=== PATIENT | male | born 1965 | race Caucasian/White ===

== ENCOUNTER 2016-03-23 01:32 | Emergency (ER) | payer MEDICAID ==
[~2016-03-23] VITALS: Ht 165.1 cm; Wt 75.0 kg
[2016-03-23 01:55] VITALS: Ht 165.1 cm; Wt 75.0 kg
--- NOTE | 2016-03-23 01:55 | ERA ---
ER Documentation Chief Complaint Date/Time DATE: 03/23/16 TIME: 01:55 Chief Complaint Suicidal ideation HPI The patient is a 50-year-old male, presenting to the ER because of acute suicidal ideation. He stopped [employer] officer because he wanted to go to the hospital. The officer brought him to the ER. He attempted to cut himself with a razor in the waiting room. He was recently hospitalized at psychiatric hospital about a week ago. She is supposed to take psychotropic medication however he does not have them for the last 4 days. He denies auditory, visual hallucination. He denies headache, neck pain, chest pain, abdominal pain, vomiting, diarrhea, constipation. He smokes, drinks, does not illicit drug Past medical history: Bipolar disorder, GERD, hiatal hernia, peptic ulcer disease, hepatitis C, hypertension Past surgical history: None ROS All systems reviewed and are negative except as per history of present illness. Allergies Allergies: Coded Allergies: No Known Drug Allergy (Verified Allergy, Unknown, 04/16/07) Physical Exam Vitals Vital Signs Date Time Temp Pulse Resp B/P Pulse Ox O2 Delivery O2 Flow Rate FiO2 03/23/16 01:55 97.7 98 26 158/97 98 03/23/16 01:55 97.7 85 26 158/97 98 Room Air Physical Exam Const: No acute distress. Head: Atraumatic. Eyes: Normal Conjunctiva. ENT: Normal External Ears, Nose and Mouth. Neck: Full range of motion. No meningismus. Resp: Clear to auscultation bilaterally. Cardio: Regular rate and rhythm, no murmurs. Abd: Soft, non distended, normal bowel sounds, non tender. Skin: No petechiae or rashes. Back: No midline or flank tenderness. Ext: No cyanosis, or edema. Neur: Awake and alert. No focal deficit Psych: Depressed and suicidal Result Diagram: 03/23/168 03/23/168 Results 24 hrs Laboratory Tests Test 03/23/16 02:08 Acetaminophen Level < 10.0ug/ml Alanine Aminotransferase (ALT/SGPT) 62IU/L Albumin 4.8g/dl Albumin/Globulin Ratio 1.23 Alkaline Phosphatase 81IU/L Anion Gap 20 Aspartate Amino Transf (AST/SGOT) 35IU/L Basophils # 0.010^3/ul Basophils % 0.4% Blood Urea Nitrogen 19mg/dl Calcium Level 10.2mg/dl Carbon Dioxide Level 28mmol/L Chloride Level 98mmol/L Creatinine 0.95mg/dl Direct Bilirubin 0.00mg/dl Eosinophils # 0.210^3/ul Eosinophils % 2.4% Ethyl Alcohol Level < 10.0mg/dl Globulin 3.90g/dl Glucose Level 109mg/dl Hematocrit 45.5% Hemoglobin 16.1g/dl Indirect Bilirubin 0.4mg/dl Lymphocytes # 2.610^3/ul Lymphocytes % 29.9% Mean Corpuscular Hemoglobin 34.3pg Mean Corpuscular Hemoglobin Concent 35.4g/dl Mean Corpuscular Volume 97.1fl Mean Platelet Volume 8.4fl Monocytes # 0.810^3/ul Monocytes % 9.4% Neutrophils # 5.010^3/ul Neutrophils % 57.9% Nucleated Red Blood Cells # 0.010^3/ul Nucleated Red Blood Cells % 0.0/100WBC Platelet Count 33365^3/UL Potassium Level 4.1mmol/L Red Blood Count 4.6810^6/ul Red Cell Distribution Width 12.8% Salicylates Level < 1.0mg/dl Sodium Level 142mmol/L Total Bilirubin 0.4mg/dl Total Protein 8.7g/dl White Blood Count 8.710^3/ul Procedures/MDM MEDICAL MAKING DECISION: The patient is a 50-year-old male, presenting with suicidal ideation. The differential diagnoses considered include but are not limited to psychosis, drug-induced psychosis, decompensated psychiatric illness , anxiety attack, panic attack Departure Diagnosis: Primary Impression: Suicidal ideation Additional Impression: Substance abuse Condition: Stable Comments He was evaluated by telepsychiatrist Dr Kinney who put the patient is a 5150 hold ELENI TELLO MD Mar 23, 2016 01:55 ELENI TELLO MD Mar 23, 2016 01:55
[2016-03-23 02:41] LABS: BASOPHILS % 0.4 % (0.0-2.0); EOSINOPHILS # 0.2 10^3/ul (0.0-0.5); EOSINOPHILS % 2.4 % (0.0-7.0); HEMATOCRIT 45.5 % (42.0-52.0); HEMOGLOBIN 16.1 g/dl (14.0-18.0); LYMPHOCYTES # 2.6 10^3/ul (0.8-2.9); LYMPHOCYTES % 29.9 % (15.0-51.0); MEAN CORPUSCULAR HEMOGLOBIN 34.3 pg (29.0-33.0); MEAN CORPUSCULAR HGB CONC 35.4 g/dl (32.0-37.0); MEAN CORPUSCULAR VOLUME 97.1 fl (82.0-101.0); MEAN PLATELET VOLUME 8.4 fl (7.4-10.4); MONOCYTE # 0.8 10^3/ul (0.3-0.9); MONOCYTES % 9.4 % (0.0-11.0); NEUTROPHILS % 57.9 % (39.0-77.0); PLATELET COUNT 270 10^3/UL (140-440); RED BLOOD COUNT 4.68 10^6/ul (4.70-6.10); RED CELL DISTRIBUTION WIDTH 12.8 % (11.5-14.5); UNCORRECTED WBC 8.7 10^3/ul (4.8-10.8); WHITE BLOOD COUNT 8.7 10^3/ul (4.8-10.8)
[2016-03-23 02:42] LABS: CONDITION 1
[2016-03-23 03:02] LABS: ALBUMIN 4.8 g/dl (3.3-4.9)
[2016-03-23 03:03] LABS: CHLORIDE 98 mmol/L (97-110); POTASSIUM 4.1 mmol/L (3.5-5.1); SODIUM 142 mmol/L (135-144)
[2016-03-23 03:05] LABS: ALBUMIN/GLOBULIN RATIO 1.23; ANION GAP 20 (8-16); ASPARTATE AMINO TRANSFERASE 35 IU/L (15-46); BILIRUBIN,INDIRECT 0.4 mg/dl (0-1.1); BILIRUBIN,TOTAL 0.4 mg/dl (0.2-1.3); CARBON DIOXIDE 28 mmol/L (21-31); CREATININE 0.95 mg/dl (0.61-1.24); TOTAL PROTEIN 8.7 g/dl (6.1-8.1)
[2016-03-23 03:06] LABS: ALANINE AMINOTRANSFERASE 62 IU/L (13-69); ALKALINE PHOSPHATASE 81 IU/L (42-121); BLOOD UREA NITROGEN 19 mg/dl (7-20); CALCIUM 10.2 mg/dl (8.4-10.2); GLUCOSE 109 mg/dl (70-220)
[2016-03-23 03:08] LABS: ACETAMINOPHEN < 10.0 ug/ml (10.0-30.0); ETHANOL < 10.0 mg/dl; SALICYLATE < 1.0 mg/dl (5.0-30.0)
[2016-03-23 05:27] LABS: ADD UMIC YES; URINE BILIRUBIN (Dip) NEGATIVE (NEGATIVE); URINE BLOOD (Dip) NEGATIVE (NEGATIVE); URINE COLOR LT. YELLOW (YELLOW); URINE GLUCOSE (Dip) NEGATIVE (NEGATIVE); URINE KETONES (Dip) NEGATIVE (NEGATIVE); URINE LEUKOCYTE ESTERASE (Dip) TRACE (NEGATIVE); URINE NITRITE (Dip) NEGATIVE (NEGATIVE); URINE TOTAL PROTEIN (Dip) NEGATIVE (NEGATIVE); URINE UROBILINOGEN (Dip) 0.2 E.U./dL (0.1-1.0)
[2016-03-23] MEDS ORDERED: LORAZEPAM 2 MG INJ IM ONE ×2 (05:30→06:00)
[2016-03-23] MEDS ORDERED: LORAZEPAM 2 MG INJ ONE (05:33)
[2016-03-23] MEDS ORDERED: DIPHENHYDRAMINE 50 MG INJ ONE (05:34)
[2016-03-23] MEDS ORDERED: HALOPERIDOL 5 MG INJ ONE (05:34)
--- NOTE | 2016-03-23 05:44 | PSY ---
Date/Time of Note Date/Time of Note DATE: 03/23/16 TIME: 05:22 Psychiatric Subjective Eval Consent Pt consented to telemedicine: Yes Subjective Evaluation Patient location: emergency Chief Complaint: insomnia x 4 days, [employer] accompanying, attempted self harm in lobby Reason for consult: SUICIDE ATTEMPT IN ER WAITING ROOM History of present illness patient is a 50 yo male with PPH Of bipolar , anxiety , alcohol and methamphetamine abuse who was brought in to the ER by [employer] due to SI, while in the ER patient attempted to cut himself.Patient states that he has been feeling depressed, hopeless and helpless for weeks due to being hopeless and drinking alcohol daily. He states that he wants to kill himself by cutting himself, he states that he hears voices telling him to hurt himself and other people, he denies any HI, he is very anxious and at times irritable and suffers from insomnia. He has been feeling paranoid and wants to be admitted for safety and treatment. Past psychiatric history past suicidal attempt and admission Hospitalization: Suicidal Attempt(s) Medical history Problems Medical Problems: (1) Substance abuse Status: Acute (2) Suicidal ideation Status: Acute Allergies: Coded Allergies: No Known Drug Allergy (Verified Allergy, Unknown, 04/16/07) Substance Abuse Substance abuse history: Yes Prior substance abuse treatmen: Yes Social History Marital status: single Level of education: hs DPA/Conservatorship: No Occupation/Correction: unemployed Psychiatric Objective Eval Review of Systems: Review of Systems: Not Applicable Physical Examination: Physical Examination: Applicable Sleep: Insomnia Appetite: Decreased Energy: Decreased Interest: Decreased Mental Status Examination: Appearance: Disheveled Eye Contact: Fair Psychomotor Activity: Normal Behavior: Cooperative Speech: Clear AFFECT: Anxious Mood: Depressed Though Process: Linear Thought Content: Delusions, Hallucinations Suicidal: Yes Homicidal: No On 72 hour hold: No Orientation: x2 Insight: Impared Judgement: Impared Attention Span: Distractible Laboratory Results Laboratory Tests Test 03/23/16 02:08 Acetaminophen Level < 10.0ug/ml Alanine Aminotransferase (ALT/SGPT) 62IU/L Albumin 4.8g/dl Albumin/Globulin Ratio 1.23 Alkaline Phosphatase 81IU/L Anion Gap 20 Aspartate Amino Transf (AST/SGOT) 35IU/L Basophils # 0.010^3/ul Basophils % 0.4% Blood Urea Nitrogen 19mg/dl Calcium Level 10.2mg/dl Carbon Dioxide Level 28mmol/L Chloride Level 98mmol/L Creatinine 0.95mg/dl Direct Bilirubin 0.00mg/dl Eosinophils # 0.210^3/ul Eosinophils % 2.4% Ethyl Alcohol Level < 10.0mg/dl Globulin 3.90g/dl Glucose Level 109mg/dl Hematocrit 45.5% Hemoglobin 16.1g/dl Indirect Bilirubin 0.4mg/dl Lymphocytes # 2.610^3/ul Lymphocytes % 29.9% Mean Corpuscular Hemoglobin 34.3pg Mean Corpuscular Hemoglobin Concent 35.4g/dl Mean Corpuscular Volume 97.1fl Mean Platelet Volume 8.4fl Monocytes # 0.810^3/ul Monocytes % 9.4% Neutrophils # 5.010^3/ul Neutrophils % 57.9% Nucleated Red Blood Cells # 0.010^3/ul Nucleated Red Blood Cells % 0.0/100WBC Platelet Count 91149^3/UL Potassium Level 4.1mmol/L Red Blood Count 4.6810^6/ul Red Cell Distribution Width 12.8% Salicylates Level < 1.0mg/dl Sodium Level 142mmol/L Total Bilirubin 0.4mg/dl Total Protein 8.7g/dl White Blood Count 8.710^3/ul Assessment and Plan Assessment/Diagnosis [place] I: bipolar do nos alcohol abuse [place] II: deferred [place] III: as per record [place] IV: homeless [place] V: gaf 25 Recommendation/Plan Follow-up/Disposition Please admit patient on unvoluntary status due to Danger to self, In my opinion, patient currently MEETS criterion for inpatient care and CANNOT be safely treated at a lower level of care today as evidenced by the following risk factors: Current and Recent Suicidal Ideation Previous suicide attempt and severe self-destructive behavior Intense feelings of hopelessness and lack of future orientation. Significant recent DETERIORATION in function, behavior and thought processes Command hallucinations with violent content Substance ABUSE in conjunction with another psychiatric disorder Non-Compliance with Outpatient Treatment Patient has failed outpatient and requires further inpatient assessment Medication changes require observation unavailable at a lower level of care [id number] Recommendation: DARELL Serrano MD Mar 23, 2016 05:40
[2016-03-23 05:47] LABS: BACTERIA,URINE RARE; URINE RBCS NONE SEEN /HPF (0)
[2016-03-23] MEDS ORDERED: HALOPERIDOL 5 MG INJ IM ONE (06:00)
[2016-03-23] MEDS ORDERED: DIPHENHYDRAMINE 50 MG INJ IM ONE (06:00)
[2016-03-23 06:10] LABS: BARBITURATES NEGATIVE (NEGATIVE); BENZODIAZEPINES NEGATIVE (NEGATIVE); CANNABINOIDS NEGATIVE (NEGATIVE); COCAINE NEGATIVE (NEGATIVE); OPIATES NEGATIVE (NEGATIVE)
[2016-03-23 09:00] VITALS: BP 148/87; PULSE 82; RESP 20; TEMP 98.3
== END 2016-03-23 10:40 ==
LOC: E/R 01:32
DX: F29 Unspecified psychosis not due to a substance or known physiological condition (principal); F19.10 Other psychoactive substance abuse, uncomplicated; R45.851 Suicidal ideations; I10 Essential (primary) hypertension
CPT/HCPCS: 36415; 80053; 80306; 80307; 81001; 85025; 96372; J1200; J1630; J2060; Z7502; 81003

== ENCOUNTER 2016-10-12 08:23 | Emergency (ER) | payer OTHER ==
[~2016-10-12] VITALS: Ht 162.6 cm; Wt 65.0 kg
[2016-10-12 08:29] VITALS: Ht 162.6 cm; Wt 65.0 kg
[2016-10-12] MEDS ORDERED: PROPOFOL 200 MG INJ IV ONE (09:00)
--- NOTE | 2016-10-12 09:47 | ERD ---
ER Documentation Chief Complaint Date/Time DATE: 10/12/16 TIME: 09:45 Chief Complaint STATED THAT HIS PYSCH MEDS ARE NOT WORKING AND WANTS EVAL, SI HPI This 51-year-old male presents emergency room requesting a "5150". He says his psych meds which he is not sure of the name of are not working and is worried that he might hurt himself. He denies any physical complaints whatsoever but request that he get a place to stay for a few days. ROS All systems reviewed and are negative except as per history of present illness. Allergies Allergies: Coded Allergies: No Known Drug Allergy (Verified Allergy, Unknown, 04/16/07) PMhx/Soc History of Surgery: Yes (LEFT FOREARM INTERNAL RECONSTRUCTION) Anesthesia Reaction: No Hx Neurological Disorder: No Hx Respiratory Disorders: No Hx Cardiac Disorders: Yes (HTN) Hx Psychiatric Problems: Yes (BIPOLAR ) Hx Miscellaneous Medical Probl: Yes (HEP C, GERD, HIATAL HERNIA) Hx Alcohol Use: Yes Hx Substance Use: Yes (METH) Hx Tobacco Use: Yes Smoking Status: Current every day smoker Physical Exam Vitals Vital Signs Date Time Temp Pulse Resp B/P Pulse Ox O2 Delivery O2 Flow Rate FiO2 10/12/16 08:29 98.1 89 18 140/90 97 Physical Exam Const: [] No distress, smiling Head: Atraumatic Eyes: Normal Conjunctiva ENT: Normal External Ears, Nose and Mouth. Neck: Full range of motion..~ No meningismus. Resp: Clear to auscultation bilaterally Cardio: Regular rate and rhythm, no murmurs Abd: Soft, non tender, non distended. Normal bowel sounds Skin: No petechiae or rashes Ext: No cyanosis, or edema Neur: Awake and alert and oriented 3, no focal deficits Psych: Normal Mood and Affect, does not appear anxious or depressed. Results 24 hrs Current Medications Medications (Trade) Dose Ordered Sig/Denys Route PRN Reason Start Time Stop Time Status Last Admin Dose Admin Propofol (Diprivan) 40 mg ONCE ONCE IV 10/12/16 09:00 10/12/16 09:00 DC Procedures/MDM Healthy adult male requesting a place to stay in stating that he is suicidal ideations. He has no physical complaints and I see no medical condition would preclude her from psychiatric admission at this time. Awaiting tele-psychiatry evaluation. Departure Diagnosis: Primary Impression: Psychological disorder IVIS MCGREGOR DO Oct 12, 2016 09:46
[2016-10-12 10:06] LABS: BASOPHILS % 0.6 % (0.0-2.0); EOSINOPHILS # 0.2 10^3/ul (0.0-0.5); EOSINOPHILS % 3.4 % (0.0-7.0); HEMATOCRIT 36.8 % (42.0-52.0); HEMOGLOBIN 13.4 g/dl (14.0-18.0); LYMPHOCYTES # 1.9 10^3/ul (0.8-2.9); LYMPHOCYTES % 35.6 % (15.0-51.0); MEAN CORPUSCULAR HEMOGLOBIN 34.1 pg (29.0-33.0); MEAN CORPUSCULAR HGB CONC 36.4 g/dl (32.0-37.0); MEAN CORPUSCULAR VOLUME 93.6 fl (82.0-101.0); MEAN PLATELET VOLUME 10.2 fl (7.4-10.4); MONOCYTE # 0.5 10^3/ul (0.3-0.9); MONOCYTES % 9.8 % (0.0-11.0); NEUTROPHIL # 2.7 10^3/ul (1.6-7.5); NEUTROPHILS % 50.2 % (39.0-77.0); PLATELET COUNT 190 10^3/UL (140-415); RED BLOOD COUNT 3.93 10^6/ul (4.70-6.10); RED CELL DISTRIBUTION WIDTH 11.8 % (11.5-14.5); WHITE BLOOD COUNT 5.3 10^3/ul (4.8-10.8)
[2016-10-12 10:24] LABS: ACETAMINOPHEN < 10.0 ug/ml (10.0-30.0); ALANINE AMINOTRANSFERASE 43 IU/L (13-69); ALBUMIN 4.1 g/dl (3.3-4.9); ALBUMIN/GLOBULIN RATIO 1.28; ALKALINE PHOSPHATASE 59 IU/L (42-121); ANION GAP 16 (8-16); ASPARTATE AMINO TRANSFERASE 30 IU/L (15-46); BILIRUBIN,INDIRECT 0.3 mg/dl (0-1.1); BILIRUBIN,TOTAL 0.3 mg/dl (0.2-1.3); BLOOD UREA NITROGEN 21 mg/dl (7-20); CARBON DIOXIDE 27 mmol/L (21-31); CHLORIDE 100 mmol/L (97-110); CREATININE 1.09 mg/dl (0.61-1.24); ETHANOL < 10.0 mg/dl; GLUCOSE 99 mg/dl (70-220); POTASSIUM 4.2 mmol/L (3.5-5.1); SALICYLATE < 1.0 mg/dl (5.0-30.0); SODIUM 139 mmol/L (135-144); TOTAL PROTEIN 7.3 g/dl (6.1-8.1)
[2016-10-12 10:35] LABS: BARBITURATES Negative (NEGATIVE); BENZODIAZEPINES Negative (NEGATIVE); CANNABINOIDS Positive (NEGATIVE); COCAINE Negative (NEGATIVE); OPIATES Negative (NEGATIVE)
--- NOTE | 2016-10-12 15:03 | PSY ---
Date/Time of Note Date/Time of Note DATE: 10/12/16 TIME: 14:58 Psychiatric Subjective Eval Subjective Evaluation Patient location: emergency Chief Complaint: STATED THAT HIS [employer] MEDS ARE NOT WORKING AND WANTS EVAL, SI Reason for consult: SI History of present illness 51 yo homeless male with hx schizoprenia presents to ED stating he needs to go to inpt psych; pt was using meth for 3 days in a row. He is drowsy and irritable; he says he will kill himself iby OD or running into traffic if discharged; he says he hears vocies telling him to kill himself. He denies HI. he says he is depressed and tired. Denies Vh. Pt is marginally cooperstive with the eval, drowsy, admits to coming off meth binge. Past psychiatric history last inpt was a few months ago Hospitalization: Suicidal Attempt(s) Family History denies Medical history Problems Medical Problems: (1) Psychological disorder Status: Acute (2) Substance abuse Status: Acute (3) Suicidal ideation Status: Acute Allergies: Coded Allergies: No Known Drug Allergy (Verified Allergy, Unknown, 04/16/07) Substance Abuse Substance abuse history: Yes Prior substance abuse treatmen: Yes Social History Marital status: Level of education: 11th grade DPA/Conservatorship: No Occupation/Prison: homeless, on ssi Psychiatric Objective Eval Mental Status Examination: Appearance: Disheveled Eye Contact: Poor Psychomotor Activity: Normal Behavior: Cooperative Speech: Slurred AFFECT: Blunt Mood: Irritable Though Process: Circumstantial Thought Content: Hallucinations Suicidal: Yes Homicidal: No On 72 hour hold: No Orientation: x4 Cognition: Drowsy Insight: Impared Judgement: Impared Laboratory Results Laboratory Tests Test 10/12/16 09:53 White Blood Count 5.310^3/ul Red Blood Count 3.9310^6/ul Hemoglobin 13.4g/dl Hematocrit 36.8% Mean Corpuscular Volume 93.6fl Mean Corpuscular Hemoglobin 34.1pg Mean Corpuscular Hemoglobin Concent 36.4g/dl Red Cell Distribution Width 11.8% Platelet Count 10296^3/UL Mean Platelet Volume 10.2fl Neutrophils % 50.2% Lymphocytes % 35.6% Monocytes % 9.8% Eosinophils % 3.4% Basophils % 0.6% Nucleated Red Blood Cells % 0.0/100WBC Neutrophils # 2.710^3/ul Lymphocytes # 1.910^3/ul Monocytes # 0.510^3/ul Eosinophils # 0.210^3/ul Basophils # 0.010^3/ul Nucleated Red Blood Cells # 0.010^3/ul Sodium Level 139mmol/L Potassium Level 4.2mmol/L Chloride Level 100mmol/L Carbon Dioxide Level 27mmol/L Anion Gap 16 Blood Urea Nitrogen 21mg/dl Creatinine 1.09mg/dl Glucose Level 99mg/dl Calcium Level 9.0mg/dl Total Bilirubin 0.3mg/dl Direct Bilirubin 0.00mg/dl Indirect Bilirubin 0.3mg/dl Aspartate Amino Transf (AST/SGOT) 30IU/L Alanine Aminotransferase (ALT/SGPT) 43IU/L Alkaline Phosphatase 59IU/L Total Protein 7.3g/dl Albumin 4.1g/dl Globulin 3.20g/dl Albumin/Globulin Ratio 1.28 Salicylates Level < 1.0mg/dl Urine Opiates Screen Negative Acetaminophen Level < 10.0ug/ml Urine Barbiturates Negative Urine Amphetamines Screen Positive Urine Benzodiazepines Screen Negative Urine Cocaine Screen Negative Urine Cannabinoids Positive Ethyl Alcohol Level < 10.0mg/dl Assessment and Plan Assessment/Diagnosis [place] I: Amphetamine withdrawal. Schizoaffective d/o. [place] II: defered [place] III: NAD [place] IV: severe [place] V: gaf 25 Recommendation/Plan Medication Management Zyrpexa 10 mg po bid; depakote 500 mg po qhs. Psychotherapy defer to inpt Follow-up/Disposition transfer to inpt psych for dts; consider re-eval then the pt will be fully awake and alert. TYESHA ANDERSON MD Oct 12, 2016 15:03
--- NOTE | 2016-10-12 18:15 | QN ---
Documentation Comment Observation Note: Time: 4 hours Family Hx: Negative for diabetes Evaluation: Multiple exams showed improving symptoms and no evidence of clinical decompensation. The patient was recommended a inpatient psychiatric stay per Dr. Morillo from psychiatry. She has recommended Zyprexa twice daily and Depakote at night. I have ordered these medications. The patient is pending transfer to a psychiatric facility. ORQUIDEA GRIJALVA MD Oct 12, 2016 18:15
[2016-10-12] MEDS ORDERED: DIVALPROEX (EC) 500 MG TAB PO SCH (21:00)
[2016-10-12] MEDS ORDERED: OLANZAPINE (ODT) 5 MG TAB ODT SCH (21:00)
[2016-10-13 00:17] VITALS: BP 144/87; PULSE 56; RESP 20; TEMP 98.1
== END 2016-10-13 00:18 ==
LOC: E/R 08:23
DX: F99 Mental disorder, not otherwise specified (principal); I10 Essential (primary) hypertension; F17.210 Nicotine dependence, cigarettes, uncomplicated
CPT/HCPCS: 80053; 80306; 80307; 85025; Z7610; 36415; 99285